=== PATIENT | male | born 1950 | race Caucasian/White ===

== ENCOUNTER 2021-10-19 08:26 | Day surgery (SDC) | payer MEDICARE, MEDICAID ==
[~2021-10-19] VITALS: Ht 180.3 cm; Wt 75.6 kg
[2021-10-19] MEDS ORDERED: normal saline 1000ml 1,000 ML IV SCH ×2 (08:55→13:05)
[2021-10-19] MEDS ORDERED: GUAI120L55 PO (09:28)
[2021-10-19] MEDS ORDERED: PROC10TA10 PO (09:28)
[2021-10-19] MEDS ORDERED: ONDA-104 PO (09:28)
[2021-10-19] MEDS ORDERED: ALBU18HF2 PO (09:28)
[2021-10-19] MEDS ORDERED: HYDR-3965 PO (09:28)
[2021-10-19] MEDS ORDERED: DEXA4TAB77 PO (09:28)
[2021-10-19] MEDS ORDERED: CLON0.5T5 PO (09:28)
[2021-10-19] MEDS ORDERED: CLOT10TR5 PO (09:28)
--- NOTE | 2021-10-19 09:30 | NUR ---
patient states he was told to discontinue his Eliquis 3 days ago. He states at that time he also discontinued all of his other meds as well including his Cardizem. Has not had in 3 days. Confirms he has not been out of the medication. Heart rate anywhere from 60's to 120's. Pt appears extremely restless, unable to lay still in bed tossing and turning and making grunting noises. appears hyperactive, denies that he has taken any drugs or alcohol today. IR to be made aware.
[2021-10-19 09:41] VITALS: BP 128/75
[2021-10-19] MEDS ORDERED: LIDOcaine 1% 30ml preserv. free vial ONE (14:16)
[2021-10-19] MEDS ORDERED: heparin 1,000unit/ml 10ml vial 10 ML ONE (14:16)
[2021-10-19] MEDS ORDERED: midazolam 1 mg/ML 2ml injection ONE (14:16)
[2021-10-19] MEDS ORDERED: fentaNYL/PF 50MCG/1 ML 2ML syringe ONE (14:16)
[2021-10-19] MEDS ORDERED: heparin sodium, porcine/PF 100unit/ml 5ML syringe ONE (14:24)
[2021-10-19] MEDS ORDERED: APIX5TAB3 PO (14:41)
[2021-10-19] MEDS ORDERED: ASPI-1265 PO (14:41)
[2021-10-19] MEDS ORDERED: DILT-94 PO (14:41)
[2021-10-19 14:49] VITALS: BP 152/91
--- NOTE | 2021-10-19 14:58 | NUR ---
Patient brought back from IR without procedure completed. Patient in rapid afib with heart rate in 160's. Returned to floor and placed on monitor. Continues in rapid afib. ER called by tank charger and is getting an ER bed. Daughter Billie called per request of patient to inform her. Contact # [phone].
== END 2021-10-19 15:05 | disposition home or self-care (01) ==
LOC: SSTAY O 08:26
PROVIDERS: ATTEND Radiology Diagnostic Radiology
DX: C34.30 Malignant neoplasm of lower lobe, unspecified bronchus or lung (principal); Z53.8 Procedure and treatment not carried out for other reasons; C79.31 Secondary malignant neoplasm of brain; C78.7 Secondary malignant neoplasm of liver and intrahepatic bile duct; I48.91 Unspecified atrial fibrillation; I10 Essential (primary) hypertension; Z79.899 Other long term (current) drug therapy
CPT/HCPCS: J1642; J1644; J2250; J3010; J3490

== ENCOUNTER 2021-10-19 15:17 | Emergency (ER) | payer MEDICARE, MEDICAID ==
[~2021-10-19] VITALS: Ht 180.3 cm; Wt 75.0 kg
[~2021-10-19 15:17] MED LIST: ALBU18HF2 PO; APIX5TAB3 PO; ASPI-1265 PO; CLON0.5T5 PO; CLOT10TR5 PO; DEXA4TAB77 PO; DILT-94 PO; GUAI120L55 PO; HYDR-3965 PO; ONDA-104 PO; PROC10TA10 PO
[2021-10-19] MEDS ORDERED: diltiazem 5mg/ml 5ml inj. IV ONE ×4 (15:40→16:50)
[2021-10-19 15:53] LABS: BASOPHILS % (AUTO) 0.3 % (0-1); EOSINOPHILS % (AUTO) 0.6 % (0-6); HEMATOCRIT 37.9 % (42.0-52.0); HEMOGLOBIN 12.9 g/dl (14.0-17.9); LYMPHOCYTES # (AUTO) 0.3 X10'3 (1.1-4.8); LYMPHOCYTES % (AUTO) 4.6 % (21-51); MEAN CORPUSCULAR HGB CONC 33.9 g/dL (33.0-36.5); MEAN CORPUSCULAR VOLUME 88.3 FL (78-98); MEAN PLATELET VOLUME 6.8 FL (7.4-10.4); MONOCYTES # (AUTO) 0.7 X10'3 (0-0.9); NEUTROPHILS # (AUTO) 4.6 X10'3 (1.8-7.7); NEUTROPHILS % (AUTO) 82.5 % (42-75); PLATELET COUNT 210 X10'3 (140-440); RED BLOOD COUNT 4.29 X10'6 (4.70-6.10); RED CELL DISTRIBUTION WIDTH 17.6 % (11.5-14.5); WHITE BLOOD COUNT 5.6 X10'3 (4.5-11.0)
[2021-10-19 16:06] LABS: APTT 26 SECONDS (22-32)
[2021-10-19 16:09] LABS: ALANINE AMINOTRANSFERASE 61 U/L (12-78); ALBUMIN 2.6 G/DL (3.4-5.0); ALBUMIN/GLOBULIN RATIO 0.7 (1.1-1.5); ALKALINE PHOSPHATASE 117 IU/L (46-116); ANION GAP 7 (8-16); ASPARTATE AMINO TRANSFERASE 48 U/L (10-37); BILIRUBIN,TOTAL 0.6 MG/DL (0.1-1.0); BLOOD UREA NITROGEN 19 MG/DL (7-18); CALCIUM 8.3 MG/DL (8.5-10.1); CHLORIDE 104 MMOL/L (99-107); CREATININE 1.12 MG/DL (0.60-1.10); GLUCOSE 90 MG/DL (70-104); POTASSIUM 3.7 MMOL/L (3.5-5.1); SODIUM 139 MMOL/L (135-145); TOTAL CARBON DIOXIDE 28.5 MMOL/L (24-32); TOTAL PROTEIN 6.1 G/DL (6.4-8.2); eGFR 65 ML/MIN
[2021-10-19 16:15] VITALS: BP 126/92
[2021-10-19 16:16] LABS: MAGNESIUM 1.9 MG/DL (1.5-2.4)
--- NOTE | 2021-10-19 17:28 | NUR ---
Daughter advised on need for ride and AMA per pt request. Pt went outside against advice
== END 2021-10-19 17:30 | disposition left against medical advice (07) ==
LOC: ER 15:17
DX: I48.20 Chronic atrial fibrillation, unspecified (principal); I10 Essential (primary) hypertension; C34.90 Malignant neoplasm of unspecified part of unspecified bronchus or lung; Z79.82 Long term (current) use of aspirin; Z79.899 Other long term (current) drug therapy
CPT/HCPCS: 36415; 80053; 83735; 83880; 85025; 85610; 85730; 93005; 96374; 99284; J3490

== ENCOUNTER 2021-10-26 06:20 | Day surgery (SDC) | payer MEDICARE, MEDICAID ==
[~2021-10-26] VITALS: Ht 180.3 cm; Wt 79.1 kg
[2021-10-26] MEDS ORDERED: normal saline 1000ml 1,000 ML IV SCH (06:55)
[2021-10-26] MEDS ORDERED: ATOR20TA PO (07:02)
[2021-10-26 07:20] VITALS: BP 136/100
[2021-10-26] MEDS ORDERED: midazolam 1 mg/ML 2ml injection ONE ×2 (08:22→09:02)
[2021-10-26] MEDS ORDERED: heparin sodium, porcine/PF 100unit/ml 5ML syringe ONE (08:22)
[2021-10-26] MEDS ORDERED: fentaNYL/PF 50MCG/1 ML 2ML syringe ONE (08:23)
[2021-10-26] MEDS ORDERED: metoprolol tartrate 1mg/ml inj IV ONE (08:51)
[2021-10-26] MEDS ORDERED: clindamycin 600mg/D5W 50ml 50 ML IV ONE (09:14)
[2021-10-26 09:44] VITALS: BP 123/88
[2021-10-26 09:57] VITALS: BP 129/90
[2021-10-26 10:12] VITALS: BP 137/99
[2021-10-26 10:27] VITALS: BP 144/97
== END 2021-10-26 11:00 | disposition home or self-care (01) ==
LOC: SSTAY O 06:20
PROVIDERS: ATTEND Radiology Vascular & Interventional Radiology
DX: C34.30 Malignant neoplasm of lower lobe, unspecified bronchus or lung (principal); C78.7 Secondary malignant neoplasm of liver and intrahepatic bile duct; C79.31 Secondary malignant neoplasm of brain; J44.9 Chronic obstructive pulmonary disease, unspecified; I10 Essential (primary) hypertension; Z79.82 Long term (current) use of aspirin; Z79.01 Long term (current) use of anticoagulants; Z79.899 Other long term (current) drug therapy; Z87.891 Personal history of nicotine dependence
CPT/HCPCS: 36561; 76937; 77001; 99152; 99153; C1769; C1788; C1894; J1642; J2250; J3010; J3490

== ENCOUNTER 2021-12-27 05:13 | Inpatient (IN) | payer MEDICARE, MEDICAID ==
[~2021-12-27] VITALS: Ht 180.3 cm; Wt 72.7 kg
[~2021-12-27 05:13] MED LIST changes: +ATOR20TA PO; -CLOT10TR5 PO; -DEXA4TAB77 PO; -ONDA-104 PO; -PROC10TA10 PO
[2021-12-27] MEDS ORDERED: diltiazem 5mg/ml 5ml inj. IV ONE ×4 (05:45→11:35)
[2021-12-27] MEDS ORDERED: iohexol 350MG/ML 100ml bottle IV ONE (05:50)
[2021-12-27 06:19] LABS: D-DIMER 1.95 MG/L FEU (0-0.50)
[2021-12-27 06:29] LABS: ALANINE AMINOTRANSFERASE 59 U/L (12-78); ALBUMIN 2.6 G/DL (3.4-5.0); ALBUMIN/GLOBULIN RATIO 0.8 (1.1-1.5); ALKALINE PHOSPHATASE 210 IU/L (46-116); ANION GAP 12 (8-16); ASPARTATE AMINO TRANSFERASE 36 U/L (10-37); BILIRUBIN,TOTAL 0.2 MG/DL (0.1-1.0); BLOOD UREA NITROGEN 16 MG/DL (7-18); BUN/CREATININE RATIO 14.8 (5.4-32.0); CALCIUM 8.7 MG/DL (8.5-10.1); CHLORIDE 107 MMOL/L (99-107); CREATININE 1.08 MG/DL (0.60-1.10); GLUCOSE 103 MG/DL (70-104); POTASSIUM 4.5 MMOL/L (3.5-5.1); SODIUM 144 MMOL/L (135-145); TOTAL CARBON DIOXIDE 25.5 MMOL/L (24-32); eGFR 68 ML/MIN
[2021-12-27 06:47] LABS: ABG BASE EXCESS -0.7 mmol/L (-2.0-2.0); ABG OXYGEN SATURATION 97.7 % (94-97); ABG PCO2 (T) 33.2 mmHg (35.0-48.0); ABG PO2 (T) 110.2 mmHg (75.0-100.0); ALLEN'S TEST POSITIVE; FCOHb 0.1 % (0.0-3.9); FLOW 3 L/min; FMetHb 0.1 % (0.0-1.5); FO2Hb 97.5 % (94-97); PATIENT TEMPERATURE 36.6; TOTAL HEMOGLOBIN 9.5 G/dl (14.0-18.0)
[2021-12-27 07:05] LABS: BASOPHILS % (AUTO) 0.5 % (0-1); EOSINOPHILS % (AUTO) 0.1 % (0-6); HEMATOCRIT 25.2 % (42.0-52.0); HEMOGLOBIN 8.4 g/dl (14.0-17.9); LYMPHOCYTES # (AUTO) 0.4 X10'3 (1.1-4.8); MEAN CORPUSCULAR HEMOGLOBIN 30.7 PG (27.0-31.0); MEAN CORPUSCULAR HGB CONC 33.4 g/dL (33.0-36.5); MEAN PLATELET VOLUME 6.7 FL (7.4-10.4); MONOCYTES # (AUTO) 1.3 X10'3 (0-0.9); MONOCYTES % (AUTO) 13.7 % (2-12); NEUTROPHILS # (AUTO) 7.6 X10'3 (1.8-7.7); NEUTROPHILS % (AUTO) 81.7 % (42-75); PLATELET COUNT 226 X10'3 (140-440); RED BLOOD COUNT 2.73 X10'6 (4.70-6.10); WHITE BLOOD COUNT 9.3 X10'3 (4.5-11.0)
[2021-12-27 07:52] LABS: ANISOCYTOSIS 3+; ELLIPTOCYTES 1+; MICROCYTOSIS 1+; PLATELET ESTIMATE NORMAL; SCHISTOCYTES 1+
[2021-12-27 07:53] LABS: ACANTHOCYTES 1+; POLYCHROMASIA FEW
[2021-12-27] MEDS ORDERED: ATOR20TA66 PO (07:55)
[2021-12-27] MEDS ORDERED: CLON-528 PO (08:00)
[2021-12-27] MEDS ORDERED: ONDA8TAB13 PO (08:02)
[2021-12-27] MEDS ORDERED: magnesium Cl slow-release 64mg tablet PO PRN (08:05)
[2021-12-27] MEDS ORDERED: potassium Cl 20 mEq SR tablet PO PRN ×2 (08:05)
[2021-12-27] MEDS ORDERED: mag hydrox/Alum hydrox/simeth 30ml oral suspension PO PRN (08:05)
[2021-12-27] MEDS ORDERED: diltiazem CD 120mg capsule (once-daily) PO SCH (08:05)
[2021-12-27] MEDS ORDERED: magnesium 2GM in 50ml NS 50 ML IV PRN (08:05)
[2021-12-27] MEDS ORDERED: ondansetron/PF 4mg/2ml inj IV PRN (08:05)
[2021-12-27] MEDS ORDERED: magnesium hydroxide 30ml (MOM) UD suspension PO PRN (08:05)
[2021-12-27] MEDS ORDERED: potassium CL 10mEq/100ml bag 100 ML IV PRN (08:05)
[2021-12-27] MEDS ORDERED: acetaminophen 325mg tablet PO PRN ×2 (08:05)
[2021-12-27] MEDS ORDERED: morphine 2 MG/ML inj. syringe IV PRN (08:05)
[2021-12-27] MEDS ORDERED: magnesium 4gm in 100ml NS 100 ML IV PRN (08:05)
[2021-12-27] MEDS ORDERED: CARSR60C PO (08:07)
[2021-12-27] MEDS ORDERED: diltiazem-D5W 125mg/125ml 125 ML IV SCH (08:10)
[2021-12-27] MEDS: furosemide 20 MG/2 ML vial IV SCH ×2 (08:30→19:40)
[2021-12-27 08:45] LABS: MAGNESIUM 1.8 MG/DL (1.5-2.4)
[2021-12-27] MEDS: apixaban 5mg tablet PO SCH ×2 (09:05→19:40)
--- NOTE | 2021-12-27 09:43 | NUR ---
ASSISTING RN WITH PT CARE. PT C/O FEELING SOB, TALKING 5-6 WORD SENTENCES, PLACED PT ON NASAL CANNULA 2 LITER 02, PULSE OX INCREASED FROM 89% TO 97%, PT STATED HE FELT A LITTLE BETTER,
--- NOTE | 2021-12-27 09:45 | NUR ---
EMPTIED URINAL OF 600ML OF CLEAR YELLOW URINE
--- NOTE | 2021-12-27 09:49 | NUR ---
left message with family regarding meds pt is currently taking, pt does not recall
[2021-12-27 10:23] VITALS: BP 143/84
[2021-12-27 11:00] VITALS: BP 131/99
--- NOTE | 2021-12-27 11:30 | NUR ---
patient's heart rate is consistently on high 130's to mid 140's... notified . PAGER ID: [phone] MESSAGE: [id number] GRANDE: doc, just want to inform u that patient's heart rate is consistently on high 130's to mid 140's AFIB. a total of 30mg cardizem iv push was given at ER with last dose at 8am. pls advise.
[2021-12-27] MEDS: levoFLOXACIN 750MG TABLET PO SCH (11:54)
[2021-12-27 15:00] VITALS: BP 137/91
[2021-12-27] MEDS ORDERED: FOLI1TAB27 PO (16:15)
[2021-12-27] MEDS ORDERED: TIOT4MIS3 PO (16:15)
[2021-12-27] MEDS ORDERED: METO-384 PO (16:15)
[2021-12-27] MEDS ORDERED: POTA-207 PO (16:15)
[2021-12-27 18:00] VITALS: BP 108/5
--- NOTE | 2021-12-27 18:31 | NUR ---
Problems reprioritized. Patient report given, questions answered & plan of care reviewed with Effie ADAME.
[2021-12-27] MEDS: docusate sod 100mg capsule PO SCH (19:40)
[2021-12-27] MEDS: HYDROcodone/acetaminophen 5mg/325mg tablet PO PRN (19:41)
[2021-12-27] MEDS: K and/or MAG REPLACEMENT MC SCH (20:00)
[2021-12-27] MEDS: morphine 2 MG/ML inj. syringe IV PRN (20:37)
[2021-12-27] MEDS ORDERED: diltiazem 5mg/ml 5ml inj. IV STA (21:28)
--- NOTE | 2021-12-27 21:31 | NUR ---
Spoke with MD Jaffe regarding patient HR sustaining in the 130-150's. New orders for 10mg Cardizem IV push once Now and start Cardizem IV 5mg/hr now. Hold PO Cardizem while on IV Cardizem drip.
[2021-12-27] MEDS: diltiazem-NS 100mg/100ml 100 ML IV SCH (21:58)
[2021-12-27 22:00] VITALS: BP 135/93
[2021-12-28] VITALS (8 sets, daily range): BP systolic 102–145; BP diastolic 82–97
[2021-12-28] MEDS: morphine 2 MG/ML inj. syringe IV PRN ×2 (06:29→16:05)
[2021-12-28 06:36] LABS: BASOPHILS # (AUTO) 0.1 X10'3 (0-0.2); BASOPHILS % (AUTO) 0.7 % (0-1); EOSINOPHILS % (AUTO) 0 % (0-6); HEMATOCRIT 28.3 % (42.0-52.0); HEMOGLOBIN 9.5 g/dl (14.0-17.9); LYMPHOCYTES # (AUTO) 0.4 X10'3 (1.1-4.8); LYMPHOCYTES % (AUTO) 3.6 % (21-51); MEAN CORPUSCULAR HEMOGLOBIN 30.4 PG (27.0-31.0); MEAN CORPUSCULAR HGB CONC 33.5 g/dL (33.0-36.5); MEAN CORPUSCULAR VOLUME 90.8 FL (78-98); MONOCYTES # (AUTO) 1.4 X10'3 (0-0.9); MONOCYTES % (AUTO) 13.5 % (2-12); NEUTROPHILS # (AUTO) 8.6 X10'3 (1.8-7.7); NEUTROPHILS % (AUTO) 82.2 % (42-75); PLATELET COUNT 213 X10'3 (140-440); RED BLOOD COUNT 3.12 X10'6 (4.70-6.10); RED CELL DISTRIBUTION WIDTH 20.2 % (11.5-14.5); WHITE BLOOD COUNT 10.5 X10'3 (4.5-11.0)
[2021-12-28 07:00] LABS: ALBUMIN 2.5 G/DL (3.4-5.0); ANION GAP 8 (8-16); BLOOD UREA NITROGEN 10 MG/DL (7-18); BUN/CREATININE RATIO 11.6 (5.4-32.0); CALCIUM 8.4 MG/DL (8.5-10.1); CHLORIDE 104 MMOL/L (99-107); CREATININE 0.86 MG/DL (0.60-1.10); GLUCOSE 90 MG/DL (70-104); MAGNESIUM 1.5 MG/DL (1.5-2.4); POTASSIUM 3.8 MMOL/L (3.5-5.1); SODIUM 140 MMOL/L (135-145); TOTAL CARBON DIOXIDE 27.6 MMOL/L (24-32); eGFR 88 ML/MIN
--- NOTE | 2021-12-28 07:05 | NUR ---
Patient in room PCU 3012. I have received report from Effie ADAME and had the opportunity to ask questions and assume patient care.
[2021-12-28 07:45] LABS: ANISOCYTOSIS 3+; PLATELET ESTIMATE NORMAL; TOTAL CELLS COUNTED 100
[2021-12-28 07:46] LABS: ACANTHOCYTES 1+; BURR CELLS FEW; ELLIPTOCYTES 1+; SCHISTOCYTES FEW
[2021-12-28] MEDS: K and/or MAG REPLACEMENT MC SCH ×2 (08:00→19:49)
[2021-12-28] MEDS: docusate sod 100mg capsule PO SCH ×2 (08:02→19:44)
[2021-12-28] MEDS: apixaban 5mg tablet PO SCH ×2 (08:02→19:44)
[2021-12-28] MEDS: furosemide 20 MG/2 ML vial IV SCH ×2 (08:04→19:43)
[2021-12-28] MEDS: HYDROcodone/acetaminophen 5mg/325mg tablet PO PRN ×2 (08:11→19:44)
--- NOTE | 2021-12-28 09:24 | NUR ---
Paged Dr. Diaz regarding patients HR in the 170's. PAGER ID: [phone] MESSAGE: [id number], Sayra Doyle. Pts HR is in the 170s he is currently on a Cardizem drip at 5mL/hr. Please advise. Eloise Zahra [id number].
[2021-12-28] MEDS: levoFLOXACIN 750MG TABLET PO SCH (10:41)
[2021-12-28] MEDS: diltiazem-NS 100mg/100ml 100 ML IV SCH (16:13)
--- NOTE | 2021-12-28 20:27 | NUR ---
Spoke with Dr. Richard regarding patient HR 140-150's, new orders received to increase IV Cardizem to 10mg/hr. current order edited to reflect new rate. Rate changed with DEEP David.
--- NOTE | 2021-12-28 20:56 | NUR ---
Pt with c/o increase in pain, pt states he does not feel like he gets much relief from the IV Morphine. Call to MD Richard with new orders for .5mg Dilaudid IV Q4H PRN for moderate-severe pain.
[2021-12-28] MEDS: HYDROmorphone inj. 0.5 MG/0.5 ML DISP.SYRIN IV PRN (21:14)
--- NOTE | 2021-12-28 22:56 | NUR ---
Patient HR continues to sustain 140-160's with a current BP of 102/86. MD Richard notified with new order to increase IV Cardizem to 15mg/hr. Order edited at this time. Will verify order and rate change with DEEP David.
[2021-12-29] VITALS (18 sets, daily range): BP systolic 105–152; BP diastolic 82–117
--- NOTE | 2021-12-29 01:28 | NUR ---
Patients HR continues to be 130-150's with BP of 130/89. MD Richard notified with new orders to change current Cardizem drip to 20mg/hr. Ordered edited at this time. Will verify with [employer] for rate change on IV Pump.
[2021-12-29] MEDS: diltiazem-NS 100mg/100ml 100 ML IV SCH ×2 (01:59→09:26)
[2021-12-29 06:56] LABS: BASOPHILS % (AUTO) 0.4 % (0-1); EOSINOPHILS % (AUTO) 0 % (0-6); HEMATOCRIT 29.9 % (42.0-52.0); LYMPHOCYTES # (AUTO) 0.4 X10'3 (1.1-4.8); LYMPHOCYTES % (AUTO) 3.5 % (21-51); MEAN CORPUSCULAR HEMOGLOBIN 30.6 PG (27.0-31.0); MEAN CORPUSCULAR HGB CONC 33.4 g/dL (33.0-36.5); MEAN CORPUSCULAR VOLUME 91.5 FL (78-98); MEAN PLATELET VOLUME 7.2 FL (7.4-10.4); MONOCYTES # (AUTO) 1.4 X10'3 (0-0.9); NEUTROPHILS # (AUTO) 8.8 X10'3 (1.8-7.7); NEUTROPHILS % (AUTO) 83.1 % (42-75); PLATELET COUNT 196 X10'3 (140-440); RED BLOOD COUNT 3.27 X10'6 (4.70-6.10); WHITE BLOOD COUNT 10.6 X10'3 (4.5-11.0)
[2021-12-29 07:04] LABS: ALBUMIN 2.5 G/DL (3.4-5.0); ANION GAP 7 (8-16); BLOOD UREA NITROGEN 11 MG/DL (7-18); BUN/CREATININE RATIO 11.2 (5.4-32.0); CALCIUM 8.6 MG/DL (8.5-10.1); CHLORIDE 104 MMOL/L (99-107); CREATININE 0.98 MG/DL (0.60-1.10); GLUCOSE 94 MG/DL (70-104); MAGNESIUM 1.6 MG/DL (1.5-2.4); POTASSIUM 3.9 MMOL/L (3.5-5.1); SODIUM 141 MMOL/L (135-145); TOTAL CARBON DIOXIDE 30.1 MMOL/L (24-32); eGFR 76 ML/MIN
[2021-12-29] MEDS: apixaban 5mg tablet PO SCH ×2 (07:20→20:10)
[2021-12-29] MEDS: HYDROcodone/acetaminophen 5mg/325mg tablet PO PRN ×2 (07:20→17:47)
[2021-12-29] MEDS: docusate sod 100mg capsule PO SCH ×2 (07:20→20:11)
[2021-12-29 07:36] LABS: ANISOCYTOSIS 3+; PLATELET ESTIMATE NORMAL
[2021-12-29 07:37] LABS: ACANTHOCYTES FEW; SCHISTOCYTES FEW
[2021-12-29 07:38] LABS: ELLIPTOCYTES FEW; POIKILOCYTOSIS FEW; POLYCHROMASIA FEW
[2021-12-29] MEDS: K and/or MAG REPLACEMENT MC SCH ×2 (08:00→20:00)
[2021-12-29] MEDS ORDERED: amiodarone 150mg/dext, iso-os 100 ML IV ONE (10:00)
--- NOTE | 2021-12-29 10:00 | NUR ---
PATIENT ATTEMPTING TO GET OUT OF BED, REFUSES TO USE BED MINOR ATTEMPTED BEDSIDE COMMODE REQUIRES 1 PERSON ASSIST, REMINDED TO USE CALL LIGHT, CALL LIGHT CLIPPED TO GOWN NEXT TO PATIENTS HAND.
[2021-12-29] MEDS: HYDROmorphone inj. 0.5 MG/0.5 ML DISP.SYRIN IV PRN ×3 (10:54→20:11)
[2021-12-29] MEDS: levoTHYROXINE 25mcg tablet PO SCH (10:55)
[2021-12-29] MEDS: levoFLOXACIN 750MG TABLET PO SCH (10:55)
[2021-12-29] MEDS: diltiazem 30mg tablet PO SCH ×3 (10:55→20:10)
[2021-12-29] MEDS: amiodarone/D5 360MG/200ML BAG 200 ML IV SCH ×2 (10:58→17:44)
[2021-12-29] MEDS ORDERED: ondansetron 4mg rapidly disintigrating tab PO PRN (12:25)
[2021-12-30] VITALS (9 sets, daily range): BP systolic 104–151; BP diastolic 64–118
[2021-12-30] MEDS: amiodarone/D5 360MG/200ML BAG 200 ML IV SCH ×3 (04:00→10:00)
[2021-12-30 06:53] LABS: BASOPHILS % (AUTO) 0.3 % (0-1); EOSINOPHILS % (AUTO) 0 % (0-6); HEMOGLOBIN 9.9 g/dl (14.0-17.9); LYMPHOCYTES # (AUTO) 0.3 X10'3 (1.1-4.8); LYMPHOCYTES % (AUTO) 3.3 % (21-51); MEAN CORPUSCULAR HGB CONC 34.1 g/dL (33.0-36.5); MEAN CORPUSCULAR VOLUME 90.8 FL (78-98); MEAN PLATELET VOLUME 7.1 FL (7.4-10.4); MONOCYTES # (AUTO) 1.3 X10'3 (0-0.9); MONOCYTES % (AUTO) 13.1 % (2-12); NEUTROPHILS # (AUTO) 8.5 X10'3 (1.8-7.7); NEUTROPHILS % (AUTO) 83.3 % (42-75); PLATELET COUNT 176 X10'3 (140-440); RED BLOOD COUNT 3.19 X10'6 (4.70-6.10); RED CELL DISTRIBUTION WIDTH 20.6 % (11.5-14.5); WHITE BLOOD COUNT 10.2 X10'3 (4.5-11.0)
[2021-12-30 07:39] LABS: ALBUMIN 2.4 G/DL (3.4-5.0); ANION GAP 9 (8-16); BLOOD UREA NITROGEN 12 MG/DL (7-18); BUN/CREATININE RATIO 10.1 (5.4-32.0); CALCIUM 8.5 MG/DL (8.5-10.1); CHLORIDE 103 MMOL/L (99-107); CREATININE 1.19 MG/DL (0.60-1.10); GLUCOSE 94 MG/DL (70-104); MAGNESIUM 1.6 MG/DL (1.5-2.4); POTASSIUM 4.2 MMOL/L (3.5-5.1); SODIUM 142 MMOL/L (135-145); TOTAL CARBON DIOXIDE 29.8 MMOL/L (24-32); eGFR 61 ML/MIN
[2021-12-30] MEDS: docusate sod 100mg capsule PO SCH ×2 (07:52→19:02)
[2021-12-30] MEDS: levoTHYROXINE 25mcg tablet PO SCH (07:52)
[2021-12-30] MEDS: diltiazem 30mg tablet PO SCH ×4 (07:52→19:02)
[2021-12-30] MEDS: apixaban 5mg tablet PO SCH ×2 (07:52→19:02)
[2021-12-30] MEDS: metoprolol tartrate 50mg tablet PO SCH (07:53)
[2021-12-30] MEDS: K and/or MAG REPLACEMENT MC SCH ×2 (08:00→19:03)
[2021-12-30] MEDS: HYDROmorphone inj. 0.5 MG/0.5 ML DISP.SYRIN IV PRN ×2 (08:16→17:41)
[2021-12-30] MEDS: furosemide 20 MG/2 ML vial IV SCH ×2 (08:27→19:02)
[2021-12-30] MEDS: levoFLOXACIN 750MG TABLET PO SCH (12:37)
[2021-12-30] MEDS: amiodarone 200mg tablet PO SCH ×2 (15:36→19:01)
--- NOTE | 2021-12-30 18:00 | NUR ---
Patient in room PCU 3012. I have received report FROM NISHI ADAME and had the opportunity to ask questions and assume patient care.
[2021-12-30] MEDS: HYDROcodone/acetaminophen 5mg/325mg tablet PO PRN (19:00)
[2021-12-30] MEDS: morphine 2 MG/ML inj. syringe IV PRN (21:47)
[2021-12-31] MEDS: HYDROcodone/acetaminophen 5mg/325mg tablet PO PRN ×2 (01:33→10:05)
[2021-12-31] MEDS: diltiazem 30mg tablet PO SCH ×2 (01:33→10:04)
[2021-12-31 02:00] VITALS: BP 113/77
[2021-12-31 06:00] VITALS: BP 108/80
--- NOTE | 2021-12-31 06:33 | NUR ---
Problems reprioritized. Patient report given, questions answered & plan of care reviewed with NIKHIL ADAME.
[2021-12-31 06:35] LABS: ALBUMIN 2.4 G/DL (3.4-5.0); ANION GAP 9 (8-16); BLOOD UREA NITROGEN 16 MG/DL (7-18); BUN/CREATININE RATIO 12.2 (5.4-32.0); CALCIUM 8.6 MG/DL (8.5-10.1); CHLORIDE 100 MMOL/L (99-107); CREATININE 1.31 MG/DL (0.60-1.10); GLUCOSE 86 MG/DL (70-104); MAGNESIUM 1.7 MG/DL (1.5-2.4); SODIUM 138 MMOL/L (135-145); TOTAL CARBON DIOXIDE 29.1 MMOL/L (24-32); eGFR 54 ML/MIN
[2021-12-31 06:42] LABS: BASOPHILS % (AUTO) 0.3 % (0-1); EOSINOPHILS % (AUTO) 0.1 % (0-6); HEMATOCRIT 27.4 % (42.0-52.0); HEMOGLOBIN 9.3 g/dl (14.0-17.9); LYMPHOCYTES # (AUTO) 0.5 X10'3 (1.1-4.8); LYMPHOCYTES % (AUTO) 6.7 % (21-51); MEAN CORPUSCULAR HEMOGLOBIN 31.1 PG (27.0-31.0); MEAN CORPUSCULAR HGB CONC 34.1 g/dL (33.0-36.5); MEAN PLATELET VOLUME 7.3 FL (7.4-10.4); MONOCYTES # (AUTO) 1.3 X10'3 (0-0.9); MONOCYTES % (AUTO) 17.4 % (2-12); NEUTROPHILS # (AUTO) 5.6 X10'3 (1.8-7.7); NEUTROPHILS % (AUTO) 75.5 % (42-75); PLATELET COUNT 176 X10'3 (140-440); RED BLOOD COUNT 3.01 X10'6 (4.70-6.10); RED CELL DISTRIBUTION WIDTH 21.9 % (11.5-14.5); WHITE BLOOD COUNT 7.4 X10'3 (4.5-11.0)
[2021-12-31 07:42] LABS: ACANTHOCYTES 1+; ANISOCYTOSIS 3+; ELLIPTOCYTES 1+; PLATELET ESTIMATE NORMAL; POIKILOCYTOSIS FEW
[2021-12-31] MEDS: K and/or MAG REPLACEMENT MC SCH (08:00)
[2021-12-31] MEDS: apixaban 5mg tablet PO SCH (10:05)
[2021-12-31] MEDS: docusate sod 100mg capsule PO SCH (10:05)
[2021-12-31] MEDS: amiodarone 200mg tablet PO SCH (10:05)
[2021-12-31] MEDS: furosemide 20 MG/2 ML vial IV SCH (10:05)
[2021-12-31] MEDS: levoTHYROXINE 25mcg tablet PO SCH (10:05)
[2021-12-31] MEDS: levoFLOXACIN 750MG TABLET PO SCH (10:05)
[2021-12-31] MEDS: metoprolol tartrate 50mg tablet PO SCH (10:09)
[2021-12-31 11:00] VITALS: BP 121/90
--- NOTE | 2021-12-31 11:09 | NUR ---
Initial: Pt presented with c/o SOB and admit for acute decompensated heart failure. Per progress notes pt with COPD exacerbation, A.fib with RVR, and possible metastatic CA with h/o stage IV lung CA. Pt currently on a heart healthy diet, documented with average 55% PO intake since admit however up to 75-100% PO intake at two most recent meals. LBM 12/30. No nutrition intervention implemented at this time. Will continue to follow closely and make recommendations as appropriate pending further trends in PO intake given recent improvement. Recommendations: 1) Liberalize to regular diet to optimize PO intake in view of stage IV lung CA with possible mets 2) Monitor need for ONS/additional protein 3) Routine bowel care 4) Scaled weight this admit; subsequent weekly scaled weights Addendum: 12/31/21 at [address] Amended: Links added.
[2021-12-31] MEDS ORDERED: AMIO200T67 PO (11:17)
[2021-12-31] MEDS ORDERED: LEVO750T46 PO (11:17)
[2021-12-31] MEDS ORDERED: FURO-150 PO (11:17)
[2021-12-31] MEDS ORDERED: DILT180C66 PO (11:17)
[2021-12-31] MEDS ORDERED: LEVO25TA7 PO (11:17)
[2021-12-31] MEDS ORDERED: APIX5TAB3 PO (11:17)
[2021-12-31] MEDS ORDERED: LACT1CAP26 PO (11:17)
[2021-12-31] MEDS: HYDROmorphone inj. 0.5 MG/0.5 ML DISP.SYRIN IV PRN (11:21)
== END 2021-12-31 13:44 | disposition home or self-care (01) | DRG 189 ==
LOC: ER 05:13 → ED HOLD 08:08 → PCU 3S 10:15
PROVIDERS: ADMIT Internal Medicine; ATTEND Internal Medicine
PROC: B32T1ZZ Computerized Tomography (CT Scan) of Left Pulmonary Artery using Low Osmolar Contrast (ICD-10-PCS; principal; 2021-12-27)
PROC: B3201ZZ Computerized Tomography (CT Scan) of Thoracic Aorta using Low Osmolar Contrast (ICD-10-PCS; 2021-12-27)
PROC: B32S1ZZ Computerized Tomography (CT Scan) of Right Pulmonary Artery using Low Osmolar Contrast (ICD-10-PCS; 2021-12-27)
DX: J96.01 Acute respiratory failure with hypoxia (principal); J44.1 Chronic obstructive pulmonary disease with (acute) exacerbation; C34.90 Malignant neoplasm of unspecified part of unspecified bronchus or lung; I48.0 Paroxysmal atrial fibrillation; E78.5 Hyperlipidemia, unspecified; E87.5 Hyperkalemia; I50.9 Heart failure, unspecified; D63.8 Anemia in other chronic diseases classified elsewhere; F41.9 Anxiety disorder, unspecified; I25.10 Atherosclerotic heart disease of native coronary artery without angina pectoris; Z87.891 Personal history of nicotine dependence; Z79.899 Other long term (current) drug therapy
CPT/HCPCS: 36415; 36600; 71045; 71275; 80048; 80053; 82803; 83735; 83880; 84439; 84443; 84484; 85007; 85008; 85018; 85025; 85379; 87081; 93005; 93306; 94668; 96374; 99291; G0378; J0282; J1170; J1940; J2270; J3490; Q9967